=== PATIENT | female | born 1940 | race Two or more races ===

== ENCOUNTER 2024-03-23 11:52 | Emergency (ER) | payer OTHER ==
[~2024-03-23] VITALS: Ht 160 cm; Wt 56.8 kg
[2024-03-23 13:52] VITALS: BP 134/52; PULSE 67; RESP 18; TEMP 98.2; O2SAT 98
== END 2024-03-23 14:25 | disposition home or self-care (01) ==
LOC: ER 11:52
DX: S00.03XA Contusion of scalp, initial encounter (principal); I10 Essential (primary) hypertension; Z98.890 Other specified postprocedural states; W18.39XA Other fall on same level, initial encounter; Y93.89 Activity, other specified; Y92.89 Other specified places as the place of occurrence of the external cause; Y99.8 Other external cause status
CPT/HCPCS: 70450

== ENCOUNTER → 2024-04-06 | Outpatient (CLI) | payer OTHER ==
[2024-04-06 11:27] LABS: Alanine Aminotransferase 12 U/L (7-40); Albumin 4.3 g/dL (3.2-4.8); Alkaline Phosphatase 127 U/L (46-116); Anion Gap 3 (5-15); Aspartate Aminotransferase 12 U/L (13-40); Bilirubin, Total 0.6 mg/dL (0.2-1.0); Blood Urea Nitrogen 32 mg/dL (9-23); Calcium 9.2 mg/dL (8.7-10.4); Carbon Dioxide 34 mmol/L (20-31); Chloride 109 mmol/L (98-107); Glucose 102 mg/dL (74-106); Potassium 4.2 mmol/L (3.5-5.1); Sodium 146 mmol/L (136-145); Total Protein 7.5 g/dL (5.7-8.2)
== END | disposition home or self-care (01) ==
LOC: LAB 10:20
PROVIDERS: ATTEND Internal Medicine
DX: E87.6 Hypokalemia (principal); E83.51 Hypocalcemia; N18.31 Chronic kidney disease, stage 3a
CPT/HCPCS: 36415; 80053

== ENCOUNTER 2024-06-19 19:28 | Emergency (ER) | payer OTHER ==
[~2024-06-19] VITALS: Ht 160 cm; Wt 54.9 kg
--- NOTE | 2024-06-19 20:45 | ECG ---
[facility] Test Date: 2024-06-19 Test Time: 20:44:05 Pat Name: CAROL HINKLE Department: ER Room: Gender: F Visual Stylist: RASHAWN : 1940 Requested By: CHAD KILGORE Order Number: [id number] Reading MD: Measurements Intervals [place] Rate: 70 P: 136 MD: 294 QRS: -85 QRSD: 165 T: 106 QT: 482 QTc: 521 Interpretive Statements Atrial-sensed ventricular-paced rhythm No further analysis attempted due to paced rhythm Please click the below link to view image of tracing.
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
--- NOTE | 2024-06-19 21:15 | DVH ---
CHEST RADIOGRAPH Indication: htn Technique: Single frontal view of the chest was obtained Comparison: None FINDINGS: Lines and Tubes: Left-sided cardiac device with intact leads. Lungs: Clear Pleura: No effusion. No pneumothorax. Cardiomediastinal contours: Unremarkable Bones: Unremarkable IMPRESSION: Clear lungs.
[2024-06-19 21:17] LABS: Basophils # (auto) 0 10 ^3/uL (0-0.2); Eosinophils # (auto) 0.1 10 ^3/uL (0-0.8); Eosinophils % (auto) 1.6 % (0.0-7.0); Hemoglobin 12.2 g/dL (12.2-16.2); Lymphocytes # (auto) 1.4 10 ^3/uL (0.4-5.4); Monocytes # (auto) 0.6 10 ^3/uL (0-1.3); Neutrophils # (auto) 5.5 10 ^3/uL (1.6-8.6); White Blood Cell 7.6 10^3/uL (4.4-10.8)
[2024-06-19 21:18] LABS: Basophils % (auto) 0.5 % (0.0-2.0); Hematocrit 37.6 % (36.0-46.0); Lymphocytes % (auto) 17.9 % (10.0-50.0); Mean Corpuscular Hemoglobin 25.2 pg (28.0-32.0); Mean Corpuscular Hgb Conc. 32.5 g/dL (32.0-36.0); Mean Corpuscular Volume 77.5 fL (80.0-100.0); Monocytes % (auto) 7.6 % (0.0-12.0); Neutrophils % (auto) 72.4 % (37.0-80.0); Platelet Count (auto) 277 10^3/uL (140-450); Red Blood Cells 4.85 10^6/uL (4.0-5.20); Red Cell Distribution Width 16.2 % (11.8-14.3)
[2024-06-19 21:25] LABS: Potassium 3.8 mmol/L (3.5-5.1); Sodium 142 mmol/L (136-145)
[2024-06-19 21:26] LABS: Anion Gap 7 (5-15); Calcium 8.9 mg/dL (8.7-10.4); Carbon Dioxide 28 mmol/L (20-31)
[2024-06-19 21:31] LABS: BUN/Creatinine Ratio 23.6 (10.0-20.0)
[2024-06-19 21:40] LABS: Chloride 107 mmol/L (98-107); Glucose 108 mg/dL (74-106)
[2024-06-19 21:41] LABS: Blood Urea Nitrogen 30 mg/dL (9-23)
[2024-06-19 23:55] VITALS: BP 115/57; PULSE 70; RESP 16; TEMP 98.7; O2SAT 96
== END 2024-06-20 00:02 | disposition home or self-care (01) ==
LOC: ER 19:28
DX: I10 Essential (primary) hypertension (principal); Z98.890 Other specified postprocedural states
CPT/HCPCS: 36415; 71045; 80048; 84484; 85025; 93005

== ENCOUNTER 2024-06-25 14:07 | Emergency (ER) | payer OTHER ==
[~2024-06-25] VITALS: Ht 160 cm; Wt 55.9 kg
--- NOTE | 2024-06-25 14:40 | ED.PDOC ---
SOB-HPI HPI Comments 84 year old female brought in by daughter presents to the ED with a chief complaint of shortness of breath onset 3 days. Daughter states the patient has been experiencing shortness of breath for the past 3 days as well as congestion and cough. Patient was seen at urgent care, tested negative for COVID, tested positive for Flu A and was told to come to ED for lab work and CXR. Upon ED patient O2 sat was 100% on RA. PMHx of HTN, afib. Denies dizziness, blurry vision, headache, nausea, vomiting, diarrhea. No other symptoms or modifying factors present at this time. 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 Family History Family History: Reviewed,noncontributory to illness Social History Smoker: Non-Smoker Alcohol: Denies ETOH Use Drugs: Denies Drug Use Lives In: Home Constitutional: reports: weakness; denies: chills, diaphoresis, fatigue, fever, malaise, sweats, others EENTM: reports: nose congestion; denies: blurred vision, double vision, ear bleeding, ear discharge, ear drainage, ear pain, ear ringing, eye pain, eye redness, hearing loss, mouth pain, mouth swelling, nasal discharge, nose bleeding, nose pain, photophobia, tearing, throat pain, throat swelling, voice changes, others Respiratory: reports: cough, shortness of breath; denies: hemoptysis, orthopnea, SOB at rest, SOB with excertion, stridor, wheezing, others Cardiovascular: denies: chest pain, dizzy spells, diaphoresis, Dyspnea on exertion, edema, irregular heart beat, left arm pain, lightheadedness, palpitations, PND, syncope, others Gastrointestinal: denies: abdomen distended, abdominal pain, blood streaked bowels, constipated, diarrhea, dysphagia, difficulty swallowing, hematemesis, melena, nausea, poor appetite, poor fluid intake, rectal bleeding, rectal pain, vomiting, others Genitourinary: denies: abnormal vagina bleeding, burning, dyspareunia, dysuria, flank pain, frequency, hematuria, incontinence, pain, , vagina discharge, urgency, others Neurological: reports: weakness; denies: dizziness, fainting, headache, left sided numbness, left sided weakness, numbness, paresthesia, pre-existing deficit, right sided numbness, right sided weakness, seizure, speech problems, tingling, tremors, others Musculoskeletal: denies: back pain, gout, joint pain, joint swelling, muscle pain, muscle stiffness, neck pain, others Integumetry: denies: bruises, change in color, change in hair/nails, dryness, laceration, lesions, lumps, rash, wounds, others Allergic/Immunocompromised: denies: Difficulty Healing, Frequent Infections, Hives, Itching, others Hematologic/Lymphatic: denies: anemia, blood clots, easy bleeding, easy bruising, swollen glands, others Endocrine: denies: excessive hunger, excessive sweating, excessive thirst, excessive urination, flushing, intolerance to cold, intolerance to heat, unexplained weight gain, unexplained weight loss, others Psychiatric: denies: anxiety, bipolar disorder, depression, hopeless, panic disorder, schizophrenia, sleepless, suicidal, others All Other Systems: Reviewed and Negative Physical Exam General Appearance: No Apparent Distress, Normal HEENT: Normal ENT Inspection, Pharynx Normal, TMs Normal Neck: Full Range of Motion, Non-Tender, Normal, Normal Inspection Respiratory: Chest Non-Tender, Lungs Clear, No Accessory Muscle Use, No Respiratory Distress, Normal Breath Sounds Cardiovascular: No Edema, No JVD, No Murmur, No Gallop, Normal Peripheral Pulses, Regular Rate/Rhythm Breast Exam: Deferred Gastrointestinal: Non Tender, No Pulsatile Mass, Normal Bowel Sounds, Soft Genitalia: Deferred Pelvic: Deferred Rectal: Deferred Extremities: No calf tenderness, Normal capillary refill, Normal inspection, Normal range of motion, Non-tender, No pedal edema Musculoskeletal : Apperance: Normal Neurologic: Alert, 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 Was a procedure done?: No Differential Dx Differential Diagnosis: Anxiety, Asthma, Bronchitis, CHF, COPD, Dysrhythmia, Hypertension, Pneumonia X-Ray, Labs, Meds, VS Vital Signs Date Time Temp Pulse Resp B/P (MAP) Pulse Ox O2 Delivery O2 Flow Rate FiO2 06/25/24 14:30 97.6 69 20 137/42 (73) 100 Lab Test 06/25/24 14:41 Range/Units White Blood Count 6.6 4.4-10.8 10^3/uL Red Blood Count 4.88 4.0-5.20 10^6/uL Hemoglobin 12.2 12.2-16.2 g/dL Hematocrit 38.1 36.0-46.0 % Mean Corpuscular Volume 78.2 L 80.0-100.0 fL Mean Corpuscular Hemoglobin 25.1 L 28.0-32.0 pg Mean Corpuscular Hemoglobin Concent 32.0 32.0-36.0 g/dL Red Cell Distribution Width 16.8 H 11.8-14.3 % Platelet Count 223 140-450 10^3/uL Mean Platelet Volume 8.7 6.9-10.8 fL Neutrophils (%) (Auto) 74.6 37.0-80.0 % Lymphocytes (%) (Auto) 11.6 10.0-50.0 % Monocytes (%) (Auto) 12.8 H 0.0-12.0 % Eosinophils (%) (Auto) 0.7 0.0-7.0 % Basophils (%) (Auto) 0.3 0.0-2.0 % Neutrophils # (Auto) 4.9 1.6-8.6 10 ^3/uL Lymphocytes # (Auto) 0.8 0.4-5.4 10 ^3/uL Monocytes # (Auto) 0.8 0-1.3 10 ^3/uL Eosinophils # (Auto) 0 0-0.8 10 ^3/uL Basophils # (Auto) 0 0-0.2 10 ^3/uL Nucleated Red Blood Cells 0.0 % Sodium Level Pending Potassium Level Pending Chloride Level Pending Carbon Dioxide Level Pending Anion Gap Pending Blood Urea Nitrogen Pending Creatinine Pending Glomerular Filtration Rate Calc Pending BUN/Creatinine Ratio Pending Serum Glucose Pending Calcium Level Pending Total Bilirubin Pending Aspartate Amino Transferase (AST) Pending Alanine Aminotransferase (ALT) Pending Alkaline Phosphatase Pending Total Protein Pending Albumin Pending X-Ray, Labs, Meds, VS Comment This pleasant 84-year-old female was sent in from local urgent care for concern of pneumonia. The patient was diagnosed with influenza at the urging here. She had this fall as he suffered a history nasal congestion, sore throat cough and body aches. Overall, however, the patient states she feels better than she did yesterday. Her actually today shows a right lower lobe pneumonia. She was given Rocephin and azithromycin for community-acquired pneumonia. Considering her age and multiple comorbidities, the patient will be admitted for further workup and management of her pneumonia. Time of 1ST Reevaluation: 14:47 Reevaluation 1ST: Unchanged Patient Education/Counseling: Diagnosis, Treatment, Prognosis Family Education/Counseling: Diagnosis, Treatment, Prognosis Additional Information The following tests were ordered, and results were reviewed by me: CBC, CMP, XY CHEST 1 VIEW Additional Information was gathered from interviewing the following independent historians: daughter I reviewed and agreed with the following test results read by other providers: xy chest I discussed treatment and results with medical personnel and patient Departure 1 Departure Time of Disposition: 15:56 Impression: Primary Impression: Influenza A Additional Impression: Right lower lobe pneumonia Disposition: 09 ADMITTED INPATIENT Admit to: Tele Condition: Fair Critical Care Note Critical Care Time?: No Stability Stability form required: No Heart Score Heart Score: Heart Score Response (Comments) Value History N/A 0 EKG N/A 0 Age N/A 0 Risk Factors N/A 0 Troponin N/A 0 Total 0 I personally scribed for DOMINGO JOHNSON MD ([email or web address]) on 06/25/24 at 14:40. Electronically submitted by Dinorah De La Torre ([email or web address]). I personally scribed for DOMINGO JOHNSON MD ([email or web address]) on 06/25/24 at 14:41. Electronically submitted by Dinorah De La Torre ([email or web address]). DOMINGO JOHNSON MD Jun 25, 2024 14:40
--- NOTE | 2024-06-25 14:50 | DVH ---
CHEST RADIOGRAPH Indication: cough Technique: Single frontal view of the chest was obtained COMPARISON: XY CHEST PORTABLE on DOS: 06/19/24 FINDINGS: Lines and Tubes: Left chest wall pacemaker Lungs: Right lower lobe airspace disease. Pleura: No effusion. No pneumothorax. Cardiomediastinal contours: Cardiac valve replacement. Bones: Unremarkable IMPRESSION: Right lower lobe airspace disease.
[2024-06-25 15:34] LABS: Basophils # (auto) 0 10 ^3/uL (0-0.2); Basophils % (auto) 0.3 % (0.0-2.0); Eosinophils # (auto) 0 10 ^3/uL (0-0.8); Eosinophils % (auto) 0.7 % (0.0-7.0); Hematocrit 38.1 % (36.0-46.0); Hemoglobin 12.2 g/dL (12.2-16.2); Lymphocytes # (auto) 0.8 10 ^3/uL (0.4-5.4); Lymphocytes % (auto) 11.6 % (10.0-50.0); Mean Corpuscular Hemoglobin 25.1 pg (28.0-32.0); Mean Corpuscular Volume 78.2 fL (80.0-100.0); Monocytes # (auto) 0.8 10 ^3/uL (0-1.3); Monocytes % (auto) 12.8 % (0.0-12.0); Neutrophils # (auto) 4.9 10 ^3/uL (1.6-8.6); Neutrophils % (auto) 74.6 % (37.0-80.0); Platelet Count (auto) 223 10^3/uL (140-450); Red Blood Cells 4.88 10^6/uL (4.0-5.20); Red Cell Distribution Width 16.8 % (11.8-14.3); White Blood Cell 6.6 10^3/uL (4.4-10.8)
[2024-06-25 15:49] LABS: Alanine Aminotransferase 19 U/L (7-40); Albumin 4.6 g/dL (3.2-4.8); Alkaline Phosphatase 96 U/L (46-116); Anion Gap 10 (5-15); Aspartate Aminotransferase 31 U/L (13-40); BUN/Creatinine Ratio 18.4 (10.0-20.0); Calcium 8.7 mg/dL (8.7-10.4); Carbon Dioxide 28 mmol/L (20-31); Chloride 101 mmol/L (98-107); Glucose 98 mg/dL (74-106); Potassium 3.6 mmol/L (3.5-5.1); Sodium 139 mmol/L (136-145)
[2024-06-25 15:50] LABS: Bilirubin, Total 0.4 mg/dL (0.2-1.0); Total Protein 7.6 g/dL (5.7-8.2)
[2024-06-25 15:53] LABS: Blood Urea Nitrogen 38 mg/dL (9-23)
[2024-06-25] MEDS ORDERED: cefTRIAXone 1GM/50ML D5W 50 ML IV ONE (16:00)
[2024-06-25] MEDS ORDERED: AZITHROMYCIN 500MG/ 250ML 250 ML IV ONE (16:00)
[2024-06-25 16:31] VITALS: BP 128/48; PULSE 70; RESP 16; TEMP 98.8; O2SAT 100
--- NOTE | 2024-06-26 06:25 | ECG ---
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
== END 2024-06-25 17:25 | disposition left against medical advice (07) ==
LOC: ER 14:07
DX: J10.00 Influenza due to other identified influenza virus with unspecified type of pneumonia (principal); I10 Essential (primary) hypertension; Z98.890 Other specified postprocedural states
CPT/HCPCS: 36415; 71045; 80053; 85025; 93005; 99285; J0696

== ENCOUNTER 2024-06-29 14:09 | Emergency (ER) | payer OTHER ==
[~2024-06-29] VITALS: Ht 160 cm; Wt 55.7 kg
--- NOTE | 2024-06-29 14:31 | ED.PDOC ---
History of Present Illness HPI Comments 84-year-old female who comes in with chief complaint of abnormal lab work. According to the family, the patient was seen on Friday at [facility]. At that time, the patient was admitted with influenza a and possible right lower lobe pneumonia. It seems that the patient did not want to wait and so left the department's. The patient's primary care doctor called him today and told him to come to the emergency department's because they had some abnormal labs. They were told that if they did not come in the patient could . Upon arrival, the patient is complaining of some weakness and dizziness with nausea. The patient was also having a mild headache. The patient denies any chest pain or shortness for breath. Chief Complaint: Abnormal LAB's Time Seen by MD: 14:14 Primary Care Provider: FAVIO Posada Notes: Nurses Notes, Medications, Allergies (No allergies to medications) Allergies: Coded Allergies: NO KNOWN ALLERGIES (Unverified , 03/23/24) Information Source: Patient, Relative (GrandChild) Mode of Arrival: Ambulatory Severity: Mild Timing: Days Duration: Since onset Prehospital treatment: None Associated signs and symptoms Mild dizziness with headache and nausea Past Medical History PAST MEDICAL HISTORY: AFIB, CVA, High Lipids, HTN Surgical History: , Pacemaker, PTCA Surgical History (Other): Cardiac valve replacement (aortic) IMAGING CENTER MANAGER History: Denies all IMAGING CENTER MANAGER Hx Family History Family History: Reviewed,noncontributory to illness Social History Smoker: Non-Smoker Alcohol: Rarely Drugs: Denies Drug Use Lives In: Home Constitutional: reports: weakness; denies: chills, diaphoresis, fatigue, fever, malaise, sweats, others EENTM: denies: blurred vision, double vision, ear bleeding, ear discharge, ear drainage, ear pain, ear ringing, eye pain, eye redness, hearing loss, mouth pain, mouth swelling, nasal discharge, nose bleeding, nose congestion, nose pain, photophobia, tearing, throat pain, throat swelling, voice changes, others Respiratory: denies: cough, hemoptysis, orthopnea, SOB at rest, shortness of breath, SOB with excertion, stridor, wheezing, others Cardiovascular: denies: chest pain, dizzy spells, diaphoresis, Dyspnea on exertion, edema, irregular heart beat, left arm pain, lightheadedness, palpitations, PND, syncope, others Gastrointestinal: reports: nausea; denies: abdomen distended, abdominal pain, blood streaked bowels, constipated, diarrhea, dysphagia, difficulty swallowing, hematemesis, melena, poor appetite, poor fluid intake, rectal bleeding, rectal pain, vomiting, others Genitourinary: denies: abnormal vagina bleeding, burning, dyspareunia, dysuria, flank pain, frequency, hematuria, incontinence, pain, , vagina discharge, urgency, others Neurological: reports: dizziness, headache; denies: fainting, left sided numbness, left sided weakness, numbness, paresthesia, pre-existing deficit, right sided numbness, right sided weakness, seizure, speech problems, tingling, tremors, weakness, others Musculoskeletal: denies: back pain, gout, joint pain, joint swelling, muscle pain, muscle stiffness, neck pain, others Integumetry: denies: bruises, change in color, change in hair/nails, dryness, laceration, lesions, lumps, rash, wounds, others Allergic/Immunocompromised: denies: Difficulty Healing, Frequent Infections, Hives, Itching, others Hematologic/Lymphatic: denies: anemia, blood clots, easy bleeding, easy bruising, swollen glands, others Endocrine: denies: excessive hunger, excessive sweating, excessive thirst, excessive urination, flushing, intolerance to cold, intolerance to heat, unexplained weight gain, unexplained weight loss, others Psychiatric: denies: anxiety, bipolar disorder, depression, hopeless, panic disorder, schizophrenia, sleepless, suicidal, others Physical Exam General Appearance: No Apparent Distress HEENT: Normal ENT Inspection, Pharynx Normal, TMs Normal Neck: Full Range of Motion, Non-Tender, Normal, Normal Inspection Respiratory: Chest Non-Tender, Lungs Clear, No Accessory Muscle Use, No Respiratory Distress, Normal Breath Sounds Cardiovascular: No Edema, No JVD, No Murmur, No Gallop, Normal Peripheral Pulses, Regular Rate/Rhythm Breast Exam: Deferred Gastrointestinal: No Organomegaly, Non Tender, No Pulsatile Mass, Normal Bowel Sounds, Soft Genitalia: Deferred Pelvic: Deferred Rectal: Deferred Extremities: No calf tenderness, Normal capillary refill, Normal inspection, Normal range of motion, Non-tender, No pedal edema Musculoskeletal : Apperance: Normal Neurologic: Alert, data services developer II-XII nml as Tested, Motor Weakness, Normal Affect, Normal Mood, No Sensory Deficits Cerebellar Function: Normal Reflexes: Normal Skin: Dry, Pallor, Warm Lymphatic: No Adenopathy Was a procedure done? Was a procedure done?: No Differential Dx Considerations may include: Generalized weakness, electrolyte imbalance, anemia, UTI X-Ray, Labs, Meds, VS Vital Signs Date Time Temp Pulse Resp B/P (MAP) Pulse Ox O2 Delivery O2 Flow Rate FiO2 06/29/24 14:35 68 06/29/24 14:26 18 97 Room Air* 0 21 06/29/24 14:15 98.2 78 18 164/62 (96) 97 Lab Test 06/29/24 14:30 Range/Units White Blood Count 5.8 4.4-10.8 10^3/uL Red Blood Count 4.63 4.0-5.20 10^6/uL Hemoglobin 11.8 L 12.2-16.2 g/dL Hematocrit 35.7 L 36.0-46.0 % Mean Corpuscular Volume 77.1 L 80.0-100.0 fL Mean Corpuscular Hemoglobin 25.4 L 28.0-32.0 pg Mean Corpuscular Hemoglobin Concent 32.9 32.0-36.0 g/dL Red Cell Distribution Width 16.2 H 11.8-14.3 % Platelet Count 288 140-450 10^3/uL Mean Platelet Volume 8.4 6.9-10.8 fL Neutrophils (%) (Auto) 65.0 37.0-80.0 % Lymphocytes (%) (Auto) 21.0 10.0-50.0 % Monocytes (%) (Auto) 11.6 0.0-12.0 % Eosinophils (%) (Auto) 2.1 0.0-7.0 % Basophils (%) (Auto) 0.3 0.0-2.0 % Neutrophils # (Auto) 3.8 1.6-8.6 10 ^3/uL Lymphocytes # (Auto) 1.2 0.4-5.4 10 ^3/uL Monocytes # (Auto) 0.7 0-1.3 10 ^3/uL Eosinophils # (Auto) 0.1 0-0.8 10 ^3/uL Basophils # (Auto) 0 0-0.2 10 ^3/uL Nucleated Red Blood Cells 0.0 % Sodium Level 140 136-145 mmol/L Potassium Level 4.1 3.5-5.1 mmol/L Chloride Level 103 98-107 mmol/L Carbon Dioxide Level 29 20-31 mmol/L Anion Gap 8 5-15 Blood Urea Nitrogen 26 H 9-23 mg/dL Creatinine 1.25 #H 0.550-1.02 mg/dL Glomerular Filtration Rate Calc 43 >90 mL/min BUN/Creatinine Ratio 20.8 H 10.0-20.0 Serum Glucose 99 74-106 mg/dL Calcium Level 8.6 L 8.7-10.4 mg/dL The patient's CBC and chemistry panel are within normal limits except for BUN of 26 and a creatinine of 1.25 At this time, the patient is being discharged We did speak with the patient's primary care doctor and the patient will follow up with them The patient understands and agrees with the management We also spoke with the family. Time of 1ST Reevaluation: 16:45 Reevaluation 1ST: Unchanged Patient Education/Counseling: Diagnosis, Treatment, Prognosis, Need For Follow Up Family Education/Counseling: Diagnosis, Treatment, Prognosis, Need For Follow Up Departure 1 Departure Time of Disposition: 16:45 Impression: Primary Impression: Renal insufficiency Disposition: 01 HOME / SELF CARE / HOMELESS Condition: Fair Discharged With: Self, Relative Critical Care Note Critical Care Time?: No Stability Stability form required: No Heart Score Heart Score: Heart Score Response (Comments) Value History N/A 0 EKG N/A 0 Age N/A 0 Risk Factors N/A 0 Troponin N/A 0 Total 0 NEHEMIAS COFFEY MD Jun 29, 2024 14:31
[2024-06-29 15:07] LABS: Basophils # (auto) 0 10 ^3/uL (0-0.2); Eosinophils # (auto) 0.1 10 ^3/uL (0-0.8); Hemoglobin 11.8 g/dL (12.2-16.2); Lymphocytes # (auto) 1.2 10 ^3/uL (0.4-5.4); Monocytes # (auto) 0.7 10 ^3/uL (0-1.3); White Blood Cell 5.8 10^3/uL (4.4-10.8)
[2024-06-29 15:08] LABS: Basophils % (auto) 0.3 % (0.0-2.0); Eosinophils % (auto) 2.1 % (0.0-7.0); Hematocrit 35.7 % (36.0-46.0); Mean Corpuscular Hemoglobin 25.4 pg (28.0-32.0); Mean Corpuscular Hgb Conc. 32.9 g/dL (32.0-36.0); Mean Corpuscular Volume 77.1 fL (80.0-100.0); Monocytes % (auto) 11.6 % (0.0-12.0); Neutrophils # (auto) 3.8 10 ^3/uL (1.6-8.6); Platelet Count (auto) 288 10^3/uL (140-450); Red Blood Cells 4.63 10^6/uL (4.0-5.20); Red Cell Distribution Width 16.2 % (11.8-14.3)
[2024-06-29 15:15] LABS: Chloride 103 mmol/L (98-107); Potassium 4.1 mmol/L (3.5-5.1); Sodium 140 mmol/L (136-145)
[2024-06-29 15:16] LABS: Anion Gap 8 (5-15); Carbon Dioxide 29 mmol/L (20-31)
[2024-06-29 15:21] LABS: BUN/Creatinine Ratio 20.8 (10.0-20.0); Glucose 99 mg/dL (74-106)
[2024-06-29 15:39] LABS: Blood Urea Nitrogen 26 mg/dL (9-23); Calcium 8.6 mg/dL (8.7-10.4)
[2024-06-29 16:56] VITALS: BP 143/42; TEMP 97.9
[2024-06-29 16:59] VITALS: PULSE 79; RESP 14; O2SAT 98
--- NOTE | 2024-07-01 07:14 | ECG ---
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
== END 2024-06-29 17:05 | disposition home or self-care (01) ==
LOC: ER 14:10
DX: N28.9 Disorder of kidney and ureter, unspecified (principal); I10 Essential (primary) hypertension; I48.91 Unspecified atrial fibrillation; Z95.0 Presence of cardiac pacemaker; Z95.2 Presence of prosthetic heart valve; Z98.890 Other specified postprocedural states
CPT/HCPCS: 36415; 80048; 85025; 93005

== ENCOUNTER → 2024-07-12 | Outpatient (CLI) | payer OTHER ==
[2024-07-12] MEDS: REGADENOSON 0.4 MG/5 ML SYRG IV ONE ×2 (09:37→09:46)
--- NOTE | 2024-07-12 11:08 | DVHSR ---
APPROVED REPORT Exam: Nuclear Stress Test BMI: 0 Stress Test Details HR Max Heart Rate (APMHR): 138.004514 bpm Target HR (85% APMHR): 117.257004 bpm BP ECG Stress ECG Conclusion lvef 52% no ischemia noted remote inferior infarct old , NM EXAM: Myocardial Perfusion REST/STRESS Imaging Protocol: Rest Tc-99m/Stress Tc-99m 1 day Resting Data Rest SPECT myocardial perfusion imaging was performed in supine position 60 minutes following the int ravenous injection of mCi of Tc-99m Sestamibi. Time of rest injection: 0758 Time of rest imagin Administration Route: IV Administration Site: Right Wrist Pharmacologic Stress Pharmacologic stress test was performed by injecting Regadenoson 0.4 mg IV push followed by the intra venous injection of 31.7 mCi of Tc-99m Sestamibi. Time of stress injection: 0938 Time of stress imagin Administration Route: IV Administration Site: Right Wrist Gated Stress SPECT was performed 60 minutes after stress injection. The images were gated to evaluate regional wall motion and calculate left ventricular ejection fracti on. Stress only was performed in the Supine position. Nuclear Conclusion Nuclear Findings: negative for ischemia lvef 52% no ischemia noted remote inferior infarct old ,
== END | disposition home or self-care (01) ==
LOC: XYW 07:10
PROVIDERS: ATTEND Internal Medicine
DX: Z01.810 Encounter for preprocedural cardiovascular examination (principal); I48.0 Paroxysmal atrial fibrillation
CPT/HCPCS: 78452; 93017; A9500; J2785

== ENCOUNTER → 2024-07-13 | Outpatient (CLI) | payer OTHER ==
[2024-07-13 16:53] LABS: Chloride 105 mmol/L (98-107); Potassium 4.7 mmol/L (3.5-5.1); Sodium 142 mmol/L (136-145)
[2024-07-13 16:54] LABS: Anion Gap 8 (5-15); Calcium 9.3 mg/dL (8.7-10.4); Carbon Dioxide 29 mmol/L (20-31)
[2024-07-13 16:59] LABS: BUN/Creatinine Ratio 23.9 (10.0-20.0); Glucose 100 mg/dL (74-106)
[2024-07-13 17:02] LABS: Blood Urea Nitrogen 28 mg/dL (9-23)
== END | disposition home or self-care (01) ==
LOC: LAB 14:46
PROVIDERS: ATTEND Internal Medicine
DX: Z11.1 Encounter for screening for respiratory tuberculosis (principal); I13.0 Hypertensive heart and chronic kidney disease with heart failure and stage 1 through stage 4 chronic kidney disease, or unspecified chronic kidney disease; I50.9 Heart failure, unspecified; N18.9 Chronic kidney disease, unspecified
CPT/HCPCS: 36415; 80048

== ENCOUNTER 2024-11-04 15:19 | Outpatient (CLI) | payer OTHER | END 2024-11-04 17:00 | disposition home or self-care (01) | LOC: LAB 15:19 | PROVIDERS: ATTEND Registered Nurse | DX: N39.0 Urinary tract infection, site not specified (principal); R82.90 Unspecified abnormal findings in urine | CPT/HCPCS: 87086 ==

== ENCOUNTER 2025-03-31 17:17 | Inpatient (IN) | payer OTHER ==
[~2025-03-31] VITALS: Ht 160 cm; Wt 53.6 kg
[2025-03-31] MEDS ORDERED: SODIUM CHLORIDE 0.9% 500 ML IVB ONE (18:15)
[2025-03-31] MEDS ORDERED: ONDANSETRON HCL 4 MG/2 ML VIAL IV ONE (18:15)
[2025-03-31] MEDS ORDERED: MORPHINE SULFATE 4 MG/ML SYR/VIAL IV ONE (18:15)
--- NOTE | 2025-03-31 18:20 | ED.PDOC ---
GI ASSESSMENT HPI Comments 84 y/o F, accompanied by daughter, with PMHx of HTN, HLD, and CVA presents to the ED for CC of abdominal pain. Per patient's daughter, patient has been c/o upper abdominal pain sudden onset, 1200 today (03/31/25). Patient denies nausea, vomiting, constipation, or diarrhea. No other symptoms or modifying factors are present at this time. Chief Complaint: Abdominal Pain Time Seen by MD: 18:00 Primary Care Provider: RADHA ULRICH Reviewed Notes: Nurses Notes, Medications, Allergies Allergies: Coded Allergies: NO KNOWN ALLERGIES (Unverified , 03/23/24) Information Source: Patient Mode of Arrival: Wheelchair Timing: Hours Duration: Since onset Prehospital treatment: None Vomitus: None Stool: Normal Severity: Moderate Recent: None Recent Hx of: None Pain Location: Epigastric, RUQ, LUQ Modifying Factors: Nothing Associated sign and symptoms: Abdominal Pain Past Medical History PAST MEDICAL HISTORY: AFIB, CVA, High Lipids, HTN Surgical History: , Pacemaker, PTCA 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: 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 all BINDING FOLDER MACHINE Hx Family History Family History: Reviewed,noncontributory to illness Social History Smoker: Non-Smoker Alcohol: Rarely Drugs: Denies Drug Use Lives In: Home Constitutional: denies: chills, diaphoresis, fatigue, fever, malaise, sweats, w eakness, others EENTM: denies: blurred vision, double vision, ear bleeding, ear discharge, ear drainage, ear pain, ear ringing, eye pain, eye redness, hearing loss, mouth pain, mouth swelling, nasal discharge, nose bleeding, nose congestion, nose pain, photophobia, tearing, throat pain, throat swelling, voice changes, others Respiratory: denies: cough, hemoptysis, orthopnea, SOB at rest, shortness of breath, SOB with excertion, stridor, wheezing, others Cardiovascular: denies: chest pain, dizzy spells, diaphoresis, Dyspnea on exertion, edema, irregular heart beat, left arm pain, lightheadedness, palpitations, PND, syncope, others Gastrointestinal: denies: abdomen distended, abdominal pain, blood streaked bowels, constipated, diarrhea, dysphagia, difficulty swallowing, hematemesis, melena, nausea, poor appetite, poor fluid intake, rectal bleeding, rectal pain, vomiting, others Genitourinary: denies: abnormal vagina bleeding, burning, dyspareunia, dysuria, flank pain, frequency, hematuria, incontinence, pain, , vagina di scharge, urgency, others Neurological: denies: dizziness, fainting, headache, left sided numbness, left sided weakness, numbness, paresthesia, pre-existing deficit, right sided numbness, right sided weakness, seizure, speech problems, tingling, tremors, weakness, others Musculoskeletal: denies: back pain, gout, joint pain, joint swelling, muscle pain, muscle stiffness, neck pain, others Integumetry: denies: bruises, change in color, change in hair/nails, dryness, laceration, lesions, lumps, rash, wounds, others Allergic/Immunocompromised: denies: Difficulty Healing, Frequent Infections, Hives, Itching, others Hematologic/Lymphatic: denies: anemia, blood clots, easy bleeding, easy bruising, swollen glands, others Endocrine: denies: excessive hunger, excessive sweating, excessive thirst, excessive urination, flushing, intolerance to cold, intolerance to heat, unexplained weight gain, unexplained weight loss, others Psychiatric: denies: anxiety, bipolar disorder, depression, hopeless, panic disorder, schizophrenia, sleepless, suicidal, others All Other Systems: Reviewed and Negative Physical Exam General Appearance: Moderate Distress HEENT: Normal ENT Inspection, Pharynx Normal, TMs Normal Neck: Full Range of Motion, Non-Tender, Normal, Normal Inspection Respiratory: Chest Non-Tender, Lungs Clear, No Accessory Muscle Use, No Respiratory Distress, Normal Breath Sounds Cardiovascular: No Edema, No JVD, No Murmur, No Gallop, Normal Peripheral Pulses, Regular Rate/Rhythm Breast Exam: Deferred Gastrointestinal: Epigastric, No Organomegaly, No Pulsatile Mass, Normal Bowel Sounds, Soft Genitalia: Deferred Pelvic: Deferred Rectal: Deferred Extremities: No calf tenderness, Normal capillary refill, Normal inspection, Normal range of motion, Non-tender, No pedal edema Musculoskeletal : Apperance: Normal Neurologic: Alert, cupola tapper II-XII nml as Tested, No Motor Deficits, Normal Affect, Normal Mood, No Sensory Deficits Cerebellar Function: Normal Reflexes: Normal Skin: Dry, Normal Color, Warm Lymphatic: No Adenopathy EKG EKG : Pulse Rate (adult): 71 [place]: Normal Cardiac Rhythm: Paced Block: None Hypertrophy: None ST: Normal Was a procedure done? Was a procedure done?: No GI differential Dx Differential Diagnosis: Cholangitis, Cholecystitis, Constipation, Gastritis/PUD, Gastroenteritis, Bacterial, Viral X-Ray, Labs, Meds, VS Vital Signs Date Time Temp Pulse Resp B/P (MAP) Pulse Ox O2 Delivery O2 Flow Rate FiO2 03/31/25 18:20 71 03/31/25 17:33 71 03/31/25 17:19 98.4 74 16 156/72 98 98.4 Lab Test 03/31/25 18:40 Range/Units White Blood Count 8.2 4.4-10.8 10^3/uL Red Blood Count 4.40 4.0-5.20 10^6/uL Hemoglobin 9.9 L 12.2-16.2 g/dL Hematocrit 30.4 L 36.0-46.0 % Mean Corpuscular Volume 69.2 L 80.0-100.0 fL Mean Corpuscular Hemoglobin 22.5 L 28.0-32.0 pg Mean Corpuscular Hemoglobin Concent 32.5 32.0-36.0 g/dL Red Cell Distribution Width 18.0 H 11.8-14.3 % Platelet Count 329 140-450 10^3/uL Mean Platelet Volume 7.9 6.9-10.8 fL Neutrophils (%) (Auto) 76.5 37.0-80.0 % Lymphocytes (%) (Auto) 12.8 10.0-50.0 % Monocytes (%) (Auto) 8.3 0.0-12.0 % Eosinophils (%) (Auto) 1.9 0.0-7.0 % Basophils (%) (Auto) 0.5 0.0-2.0 % Neutrophils # (Auto) 6.3 1.6-8.6 10 ^3/uL Lymphocytes # (Auto) 1.0 0.4-5.4 10 ^3/uL Monocytes # (Auto) 0.7 0-1.3 10 ^3/uL Eosinophils # (Auto) 0.2 0-0.8 10 ^3/uL Basophils # (Auto) 0 0-0.2 10 ^3/uL Nucleated Red Blood Cells 0.0 % Sodium Level 140 136-145 mmol/L Potassium Level 4.7 3.5-5.1 mmol/L Chloride Level 103 98-107 mmol/L Carbon Dioxide Level 28 20-31 mmol/L Anion Gap 9 5-15 Blood Urea Nitrogen 22 9-23 mg/dL Creatinine 1.31 H 0.550-1.02 mg/dL Glomerular Filtration Rate Calc 41 >90 mL/min BUN/Creatinine Ratio 16.8 10.0-20.0 Serum Glucose 95 74-106 mg/dL Calcium Level 8.8 8.7-10.4 mg/dL Total Bilirubin 0.6 0.2-1.0 mg/dL Aspartate Amino Transferase (AST) 20 13-40 U/L Alanine Aminotransferase (ALT) 14 7-40 U/L Alkaline Phosphatase 116 46-116 U/L Total Protein 7.5 5.7-8.2 g/dL Albumin 4.2 3.2-4.8 g/dL Lipase 51 12-53 U/L GALLBLADDER US: IMPRESSION: 1. No acute sonographic abnormality of the abdomen allowing for limitation from overlying bowel gas and patient positioning. The patient's CBC shows anemia with a hemoglobin of 9.9 hematocrit of 30.4 The chemistry panel shows a creatinine of 1.31 The rest of the chemistry panel is within normal limits This patient is being admitted to the hospitalist A CAT scan of the abdomen and pelvis has been ordered The patient is still having persistent pain We did order morphine and Zofran for the pain in the nausea Images Reviewed?: Images reviewed and evaluated by me Time of 1ST Reevaluation: 18:30 Reevaluation 1ST: Unchanged Patient Education/Counseling: Diagnosis, Treatment Family Education/Counseling: Diagnosis, Treatment SEPSIS Sepsis Screen Date sepsis recognized/suspect: Mar 31, 2025 Time Sepsis recognized/suspect: 1718 Recent Procedure: No Respiratory Rate >20: No Heart Rate >90: No Temp<36 C (96.8 F) or >38.3 C: No SBP <90 or MAP <65 mmHG: No New Acute Mental Status Change: No Is the patient on CPAP, BIPAP,: No Physician Orders Urinalysis (03/31/25 18:14) Heplock Iv (03/31/25 18:14) Wind Turbine Electrical Engineer (03/31/25 18:14) Blood Pressure (03/31/25 18:14) Pulse Oximetry (03/31/25 18:14) Gallbladder (03/31/25 18:14) Electrocardigram (03/31/25 18:47) Ct Ab Pel Wo Con-No Oral Or Iv (03/31/25 20:04) Losartan Tablet (Cozaar Tablet) (04/01/25 10:00) Metoprolol Tartrate Tablet (Lopressor Ta (03/31/25 22:00) Clonidine Hcl Tablet (Catapres Tablet) (03/31/25 20:30) Pantoprazole (Protonix) (04/01/25 10:00) Allergies (03/31/25 20:28) Code Status (03/31/25 20:28) Sodium Chloride Lock (Saline Lock Ns) (03/31/25 22:00) Oxygen Per Hour (03/31/25:28) Hydrocodone-Acet 5/325mg Tab (Artesian 32 (03/31/25 20:30) Ondansetron Hcl (Zofran) (03/31/25 20:30) Docusate Sodium Capsule (Colace Capsule) (03/31/25 20:30) Fall Risk Precautions In Place QSHIFT (03/31/25 20:28) Complete Blood Count (04/01/25 04:00) Comprehensive Metabolic Panel (04/01/25 04:00) Condition: Serious (03/31/25 20:28) Acetaminophen Tablet (Tylenol Tablet) (03/31/25 20:30) Clear Liq Diet (04/01/25 Breakfast) Maintain Bed Rest (03/31/25 20:28) Sequential Compression Device (03/31/25 ) Rivaroxaban Tablet (Xarelto Tablet) (04/01/25 18:00) Vital Signs Date Time Temp Pulse Resp B/P (MAP) Pulse Ox O2 Delivery O2 Flow Rate FiO2 03/31/25 18:20 71 03/31/25 17:33 71 03/31/25 17:19 98.4 74 16 156/72 98 98.4 Laboratory Tests Test 03/31/25 18:40 White Blood Count 8.2 10^3/uL (4.4-10.8) Departure 1 Departure Time of Disposition: 21:16 Impression: Primary Impression: Intractable abdominal pain Disposition: ADMITTED INPATIENT Admit to: Med Surg Condition: Fair Critical Care Note Critical Care Time?: No Stability Stability form required: Yes Unstable for transfer: ED Physician Assesment (Clinical assesment) Heart Score Heart Score: Heart Score Response (Comments) Value History N/A 0 EKG N/A 0 Age N/A 0 Risk Factors N/A 0 Troponin N/A 0 Total 0 I personally scribed for NEHEMIAS COFFEY MD ([email or web address]) on 03/31/25 at 18:20. Electronically submitted by Mary Graham [email or web address]). I personally scribed for NEHEMIAS COFFEY MD ([email or web address]) on 03/31/25 at 20:59. Electronically submitted by Mary Grhaam [email or web address]). NEHEMIAS COFFEY MD Mar 31, 2025 18:20
[2025-03-31 19:00] LABS: Nucleated Red Blood Cells % 0.0 %
[2025-03-31 19:01] LABS: Hematocrit 30.4 % (36.0-46.0); Hemoglobin 9.9 g/dL (12.2-16.2); Mean Corpuscular Hemoglobin 22.5 pg (28.0-32.0); Mean Corpuscular Volume 69.2 fL (80.0-100.0)
[2025-03-31 19:15] LABS: Alanine Aminotransferase 14 U/L (7-40); Albumin 4.2 g/dL (3.2-4.8); Alkaline Phosphatase 116 U/L (46-116); Anion Gap 9 (5-15); BUN/Creatinine Ratio 16.8 (10.0-20.0); Blood Urea Nitrogen 22 mg/dL (9-23); Calcium 8.8 mg/dL (8.7-10.4); Carbon Dioxide 28 mmol/L (20-31); Chloride 103 mmol/L (98-107); Glucose 95 mg/dL (74-106); Lipase 51 U/L (12-53); Potassium 4.7 mmol/L (3.5-5.1); Sodium 140 mmol/L (136-145); Total Protein 7.5 g/dL (5.7-8.2)
[2025-03-31 19:16] LABS: Bilirubin, Total 0.6 mg/dL (0.2-1.0)
--- NOTE | 2025-03-31 19:58 | DVH ---
EXAM: US GALLBLADDER HISTORY: pain COMPARISON: XY CHEST XRAY 1 VIEW on DOS: 06/25/24 TECHNIQUE: Multiple longitudinal and transverse sonographic images of the abdomen were obtained. Doppler was applied as indicated. FINDINGS: [PANCREAS]: The visualized portions of the pancreas are unremarkable. [AORTA]: Normal [LIVER]: 12.8 cm. normal echogenicity and echotexture. There is no focal hepatic mass lesion detected. [GALLBLADDER]: Gallbladder wall measures 0.2 cm. There is no gallbladder sludge or shadowing gallstone. There is no sonographic Hemphill sign. [BILIARY TREE]: Not well-visualized [ASCITES]: No free fluid is demonstrated. [VESSELS]: The main portal vein is patent on color Doppler evaluation. The inferior vena cava is patent on color Doppler evaluation. [RIGHT KIDNEY]: 9 cm. normal cortical echogenicity and normal contour. No hydronephrosis. IMPRESSION: 1. No acute sonographic abnormality of the abdomen allowing for limitation from overlying bowel gas and patient positioning.
[2025-03-31] MEDS ORDERED: ACETAMINOPHEN 325 MG TAB PO PRN (20:30)
[2025-03-31] MEDS ORDERED: ONDANSETRON HCL 4 MG/2 ML VIAL IV PRN (20:30)
[2025-03-31] MEDS ORDERED: DOCUSATE SOD 100 MG CAP PO PRN (20:30)
--- NOTE | 2025-03-31 21:25 | DVH ---
Exam: CT CT AB PEL WO CON-NO ORAL OR IV History: pain Comparison Study: XY CHEST XRAY 1 VIEW on DOS: 06/25/24, XY CHEST PORTABLE on DOS: 06/19/24, CT HEAD WITHOUT CONTRAST on DOS: 03/23/24 Technique: Multidetector spiral CT of the abdomen was performed from lung bases to pubic symphysis. Imaging was performed without IV contrast. Axial, coronal and sagittal multiplanar reformats were obtained from the axial data set by the technologist. Radiation Dose : 1. Abdomen/Pelvis: CTDIvol 12.23 mGy, DLP 707.71 mGy*cm. Findings: Evaluation of solid organs is limited due to lack of intravenous contrast use. Lung Bases: No acute or significant lung base finding. Normal heart size. No pleural or pericardial effusion. Small pericardial effusion. Liver: The liver is normal in size. No focal lesions. Gallbladder and Biliary Tree: Unremarkable Spleen: Unremarkable Pancreas: The pancreas is grossly normal in appearance. Adrenal Glands: Unremarkable Kidneys: Left kidney is severely atrophic. Bladder: Grossly unremarkable for degree of distention. Bowel: The stomach is grossly normal in appearance. Small bowel and colon are normal in caliber and distribution. The appendix is not visualized; however, no secondary findings of acute appendicitis identified. Ascites: Small volume ascites. Lymphadenopathy: No mesenteric, retroperitoneal or periportal lymphadenopathy. Abdominal Wall and Mesentery: Unremarkable. Vasculature: The visualized abdominal aorta is normal in size and caliber. Evaluation of abdominal and pelvic vessels is limited due to lack of intravenous contrast. Pelvic Organs: Unremarkable Musculoskeletal: No aggressive focal bony lesions, acute fractures or dislocation. Right breast implant. IMPRESSION: No acute abdominal or pelvic findings. Radiation optimization: All CT scans at this facility use at least one of these dose optimization techniques: automated exposure control mA and/or kV adjustment per patient size (includes targeted exams where dose is matched to clinical indication) or iterative reconstruction.
--- NOTE | 2025-03-31 22:29 | DVHHP2 ---
History of Present Illness Reason for Visit: Intractable abdominal pain History of Present Illness The patient is a 84-year-old female Jehovah Witness with past medical history of CVA, AFib, hypertension, and hyperlipidemia who presented to [facility] ED with complaint of abdominal pain. Patient reports she has been experiencing upper abdominal pain rating 7/10 numeric scale, nonradiating, getting worse that prompted this visit. Patient was seen and evaluated in the ED, laboratory data shows WBC 8.2, hemoglobin 9.9, hematocrit 30.4, platelets 329, sodium 140, potassium 4.7, BUN 22, creatinine 1.31, GFR 41, glucose 95, calcium 8.8, lipase 51, blood pressure 156/72, heart rate 72, temperature 98.4 F, O2 saturation 98% on room air. Abdomen/pelvis CT showed no acute abdominal or pelvic findings. Please see medication orders section in the computer. On my assessment, patient denied chest pain, no dizziness, headache, diaphoresis, shortness of breaths, no abdominal pain at this moment, diarrhea, nausea, vomiting, fever, no chills. Patient was admitted for further evaluation and medical management. Past Medical History AFIB, CVA, High Lipids, HTN Past Surgical History , Pacemaker, PTCA Family History Reviewed, noncontributory to the management of this case. Past Social History The patient lives at home, denies smoking, alcohol or illicit drugs abuse. Review of Systems Constitutional: Yes: Weakness; No: Fever, Chills, Sweats, Malaise, Other Eyes: No: Pain, Vision change, Conjunctivae inflammation, Eyelid inflammation, Other, Redness ENT: No: Ear pain, Ear discharge, Nose pain, Nose discharge, Nose congestion, Mouth pain, Mouth swelling, Throat pain, Throat swelling, Other Respiratory: No: Cough, Dry, Shortness of breath, SOB with excertion, Wheezing, Hemoptysis, Pleuritic Pain, Sputum, Wheezing, Other Cardiovascular: No: Chest Pain, Palpitations, Orthopnea, Paroxysmal Noc. Dyspnea, Edema, Lt Headedness, Other Gastrointestinal: Abdominal Pain; No: Nausea, Vomiting, Diarrhea, Constipation, Melena, Hematochezia, Other Genitourinary: No Dysuria, No Frequency, No Incontinence, No Hematuria, No Retention, No Other Musculoskeletal: No: other, neck pain, shoulder pain, arm pain, back pain, hand pain, leg pain, foot pain Skin: No: Rash, Lesions, Jaundice, Bruising, Other Neurological: No: Weakness, Numbness, Incoordination, Change in speech, Confusion, Seizures, Other Allergies: Coded Allergies: NO KNOWN ALLERGIES (Unverified , 03/23/24) Medications Current Medications Medications Dose Ordered Sig/Lakshmi Route Start Time Stop Time Status Last Admin Dose Admin Losartan Potassium 25 mg DAILY PO 04/01/25 10:00 Metoprolol Tartrate 25 mg BID PO 03/31/25 22:00 Clonidine HCl 0.1 mg Q4HP PRN PO 03/31/25 20:30 Pantoprazole Sodium 40 mg DAILY IV 04/01/25 10:00 Sodium Chloride 10 ml Q8HR IV 03/31/25 22:00 Acetaminophen/ Hydrocodone Bitart 1 tab Q4HP PRN PO 03/31/25 20:30 Ondansetron HCl 4 mg Q4HP PRN IV 03/31/25 20:30 Docusate Sodium 100 mg BIDPRN PRN PO 03/31/25 20:30 Acetaminophen 650 mg Q6HP PRN PO 03/31/25 20:30 Rivaroxaban 20 mg QPM PO 04/01/25 18:00 Exam Vital Signs Vital Signs Date Time Temp Pulse Resp B/P (MAP) Pulse Ox O2 Delivery O2 Flow Rate FiO2 03/31/25 22:04 97.6 67 16 145/59 (87) 98 97.6 General Appearance: Alert, Oriented X3, Cooperative, No acute distress HEENT: Atraumatic, PERRLA, EOMI, Mucous membr. moist/pink Respiratory: Normal air movement Cardiovascular: Regular rate, Normal S1, Normal S2, No murmurs Abdominal: Normal bowel sounds, Soft, No hepatospenomegaly, No masses, Other (Reports tenderness) Extremities: No clubbing, No cyanosis, No edema, Normal pulses, No tenderness/ swelling Skin: No rashes, No breakdown, No significant lesion Neuro: Normal speech, Normal tone, Sensation intact, Cranial nerves 3-12 NL, Reflexes 2+, Other (Generalized weakness) Psych/Mental Status: Mental status NL, Mood NL Labs/Xrays Labs Test 03/31/25 18:40 Range/Units White Blood Count 8.2 4.4-10.8 10^3/uL Red Blood Count 4.40 4.0-5.20 10^6/uL Hemoglobin 9.9 L 12.2-16.2 g/dL Hematocrit 30.4 L 36.0-46.0 % Mean Corpuscular Volume 69.2 L 80.0-100.0 fL Mean Corpuscular Hemoglobin 22.5 L 28.0-32.0 pg Mean Corpuscular Hemoglobin Concent 32.5 32.0-36.0 g/dL Red Cell Distribution Width 18.0 H 11.8-14.3 % Platelet Count 329 140-450 10^3/uL Mean Platelet Volume 7.9 6.9-10.8 fL Neutrophils (%) (Auto) 76.5 37.0-80.0 % Lymphocytes (%) (Auto) 12.8 10.0-50.0 % Monocytes (%) (Auto) 8.3 0.0-12.0 % Eosinophils (%) (Auto) 1.9 0.0-7.0 % Basophils (%) (Auto) 0.5 0.0-2.0 % Neutrophils # (Auto) 6.3 1.6-8.6 10 ^3/uL Lymphocytes # (Auto) 1.0 0.4-5.4 10 ^3/uL Monocytes # (Auto) 0.7 0-1.3 10 ^3/uL Eosinophils # (Auto) 0.2 0-0.8 10 ^3/uL Basophils # (Auto) 0 0-0.2 10 ^3/uL Nucleated Red Blood Cells 0.0 % Sodium Level 140 136-145 mmol/L Potassium Level 4.7 3.5-5.1 mmol/L Chloride Level 103 98-107 mmol/L Carbon Dioxide Level 28 20-31 mmol/L Anion Gap 9 5-15 Blood Urea Nitrogen 22 9-23 mg/dL Creatinine 1.31 H 0.550-1.02 mg/dL Glomerular Filtration Rate Calc 41 >90 mL/min BUN/Creatinine Ratio 16.8 10.0-20.0 Serum Glucose 95 74-106 mg/dL Calcium Level 8.8 8.7-10.4 mg/dL Total Bilirubin 0.6 0.2-1.0 mg/dL Aspartate Amino Transferase (AST) 20 13-40 U/L Alanine Aminotransferase (ALT) 14 7-40 U/L Alkaline Phosphatase 116 46-116 U/L Total Protein 7.5 5.7-8.2 g/dL Albumin 4.2 3.2-4.8 g/dL Lipase 51 12-53 U/L PATIENT: CAROL HINKLET: [id number] UNIT: [id number] : 1940 LOC: ER ROOM / BED: / AGE / SEX: 84 / F ADM STATUS: REG ER SERVICE 03 ORDERING PHYSICIAN: NEHEMIAS COFFEY MD PROCEDURE(s): ABPL - CT AB PEL WO CON-NO ORAL OR IV REASON: pain ORDER NUMBER(s): [id number], ACCESSION NUMBER(s): [id number] Exam: CT CT AB PEL WO CON-NO ORAL OR IV History: pain Comparison Study: XY CHEST XRAY 1 VIEW on DOS: 06/25/24, XY CHEST PORTABLE on DOS: 06/19/24, CT HEAD WITHOUT CONTRAST on DOS: 03/23/24 Technique: Multidetector spiral CT of the abdomen was performed from lung bases to pubic symphysis. Imaging was performed without IV contrast. Axial, coronal and sagittal multiplanar reformats were obtained from the axial data set by the technologist. Radiation Dose: 1. Abdomen/Pelvis: CTDIvol 12.23 mGy, DLP 707.71 mGy*cm. Findings: Evaluation of solid organs is limited due to lack of intravenous contrast use. Lung Bases: No acute or significant lung base finding. Normal heart size. No pleural or pericardial effusion. Small pericardial effusion. Liver: The liver is normal in size. No focal lesions. Gallbladder and Biliary Tree: Unremarkable Spleen: Unremarkable Pancreas: The pancreas is grossly normal in appearance. Adrenal Glands: Unremarkable Kidneys: Left kidney is severely atrophic. Bladder: Grossly unremarkable for degree of distention. Bowel: The stomach is grossly normal in appearance. Small bowel and colon are normal in caliber and distribution. The appendix is not visualized; however, no secondary findings of acute appendicitis identified. Ascites: Small volume ascites. Lymphadenopathy: No mesenteric, retroperitoneal or periportal lymphadenopathy. Abdominal Wall and Mesentery: Unremarkable. Vasculature: The visualized abdominal aorta is normal in size and caliber. Evaluation of abdominal and pelvic vessels is limited due to lack of intravenous contrast. Pelvic Organs: Unremarkable Musculoskeletal: No aggressive focal bony lesions, acute fractures or dislocation. Right breast implant. IMPRESSION: No acute abdominal or pelvic findings. ORDERING PHYSICIAN: NEHEMIAS COFFEY MD PROCEDURE(s): GBUS - GALLBLADDER REASON: pain ORDER NUMBER(s): [id number], ACCESSION NUMBER(s): [id number] EXAM: US GALLBLADDER HISTORY: pain COMPARISON: XY CHEST XRAY 1 VIEW on DOS: 06/25/24 TECHNIQUE: Multiple longitudinal and transverse sonographic images of the abdomen were obtained. Doppler was applied as indicated. FINDINGS: [PANCREAS]: The visualized portions of the pancreas are unremarkable. [AORTA]: Normal [LIVER]: 12.8 cm. normal echogenicity and echotexture. There is no focal hepatic mass lesion detected. [GALLBLADDER]: Gallbladder wall measures 0.2 cm. There is no gallbladder sludge or shadowing gallstone. There is no sonographic Hemphill sign. [BILIARY TREE]: Not well-visualized [ASCITES]: No free fluid is demonstrated. [VESSELS]: The main portal vein is patent on color Doppler evaluation. The inferior vena cava is patent on color Doppler evaluation. [RIGHT KIDNEY]: 9 cm. normal cortical echogenicity and normal contour. No hydronephrosis. IMPRESSION: 1. No acute sonographic abnormality of the abdomen allowing for limitation from overlying bowel gas and patient positioning. SEPSIS Sepsis Screen Date sepsis recognized/suspect: Mar 31, 2025 Time Sepsis recognized/suspect: 1718 Recent Procedure: No Respiratory Rate >20: No Heart Rate >90: No Temp<36 C (96.8 F) or >38.3 C: No SBP <90 or MAP <65 mmHG: No New Acute Mental Status Change: No Is the patient on CPAP, BIPAP,: No Physician Orders Urinalysis (03/31/25 18:14) Heplock Iv (03/31/25 18:14) Health Care Analyst (03/31/25 18:14) Blood Pressure (03/31/25 18:14) Pulse Oximetry (03/31/25 18:14) Gallbladder (03/31/25 18:14) Electrocardigram (03/31/25 18:47) Ct Ab Pel Wo Con-No Oral Or Iv (03/31/25 20:04) Losartan Tablet (Cozaar Tablet) (04/01/25 10:00) Metoprolol Tartrate Tablet (Lopressor Ta (03/31/25 22:00) Clonidine Hcl Tablet (Catapres Tablet) (03/31/25 20:30) Pantoprazole (Protonix) (04/01/25 10:00) Allergies (03/31/25 20:28) Code Status (03/31/25 20:28) Sodium Chloride Lock (Saline Lock Ns) (03/31/25 22:00) Oxygen Per Hour (03/31/25 20:28) Hydrocodone-Acet 5/325mg Tab ([place] 532 (03/31/25 20:30) Ondansetron Hcl (Zofran) (03/31/25 20:30) Docusate Sodium Capsule (Colace Capsule) (03/31/25 20:30) Fall Risk Precautions In Place QSHIFT (03/31/25 20:) Complete Blood Count (04/01/25 04:00) Comprehensive Metabolic Panel (04/01/25 04:00) Condition: Serious (03/31/25 20:28) Acetaminophen Tablet (Tylenol Tablet) (03/31/25 20:30) Clear Liq Diet (04/01/25 Breakfast) Maintain Bed Rest (03/31/25 20:28) Sequential Compression Device (03/31/25 ) Rivaroxaban Tablet (Xarelto Tablet) (04/01/25 18:00) Vital Signs Date Time Temp Pulse Resp B/P (MAP) Pulse Ox O2 Delivery O2 Flow Rate FiO2 03/31/25 22:04 97.6 67 16 145/59 (87) 98 97.6 03/31/25 18:20 71 03/31/25 17:33 71 03/31/25 17:19 98.4 74 16 156/72 98 98.4 Laboratory Tests Test 03/31/25 18:40 White Blood Count 8.2 10^3/uL (4.4-10.8) Assessment/Plan Assessment/Plan Intractable abdominal pain Anemia, unspecified Acute renal injury Generalized weakness Plan 1. Admit to med surge unit 2. Breathing treatment 3. Pain control management 4. Management of fluids and electrolytes 5. Consultation for hospitalist 6. Diagnostic tests abdomen/pelvis CT 7. DVT prophylaxis-on SCDs 8. Repeat labs CBC, CMP in a.m. 9. Continue with current medical management 10. Treatment plan discussed with patient and RN. Patient verbalized understanding. Plan discussed with: Patient, Other (RN) My Orders Orders - BOBO ANTHONY DNP Procedure Category Date Status Time Losartan Tablet PHA 04/01/25 In Process (Cozaar Tablet) 10:00 Metoprolol Tartrate PHA 03/31/25 In Process Tablet (Lopressor Ta 22:00 Clonidine Hcl Tablet PHA 03/31/25 In Process (Catapres Tablet) 20:30 Pantoprazole PHA 04/01/25 In Process (Protonix) 10:00 Allergies EDWIN 03/31/25 In Process 20:28 Code Status CODE 03/31/25 Transmitted 20:28 Sodium Chloride Lock PHA 03/31/25 In Process (Saline Lock Ns) 22:00 Oxygen Per Hour RT 03/31/25 Transmitted 20:28 Hydrocodone-Acet PHA 03/31/25 In Process 5/325mg Tab ([place] 20:30 Ondansetron Hcl PHA 03/31/25 In Process (Zofran) 20:30 Docusate Sodium PHA 03/31/25 In Process Capsule (Colace 20:30 Fall Risk Precautions EDWIN 03/31/[address] 20:28 Complete Blood Count LAB 04/01/25 Verified 04:00 Comprehensive LAB 04/01/25 Verified Metabolic Panel 04:00 Condition: Serious EDWIN 03/31/25 In Process 20:28 Acetaminophen Tablet PHA 03/31/25 In Process (Tylenol Tablet) 20:30 Clear Liq Diet DIET 04/01/25 Transmitted Breakfast Maintain Bed Rest EDWIN 03/31/25 In Process 20:28 Sequential EDWIN 03/31/25 In Process Compression Device Rivaroxaban Tablet PHA 04/01/25 In Process (Xarelto Tablet) 18:00 Problem List: (1) Intractable abdominal pain (2) Anemia, unspecified (3) Acute renal injury (4) Generalized weakness Date of Service: Mar 31, 2025 Billing Provider: BOBO ANTHONY DNP Common Visit Codes: 77536-[id number] INP/OBS CARE (HIGH) BOBO ANTHONY DNP Mar 31, 2025 22:29
[2025-03-31] MEDS ORDERED: MORPHINE SULFATE INJ 2 MG/ml SYRG IV PRN (22:30)
[2025-03-31] MEDS ORDERED: NITROGLYCERIN 0.4 MG SL TAB SL PRN (22:30)
[2025-03-31 23:05] VITALS: PULSE 67; RESP 16; O2SAT 98
[2025-03-31 23:20] VITALS: BP 154/73; PULSE 73; RESP 17; TEMP 97.9; O2SAT 99
[2025-03-31 23:35] VITALS: BP_SYST 122; BP_SYST 154; BP_DIAS 73; BP_DIAS 75; PULSE 73; PULSE 82; RESP 16; RESP 17; TEMP 97.8; TEMP 97.9; O2SAT 98; O2SAT 99
[2025-03-31] MEDS: METOPROLOL TARTRATE 25 MG TAB PO SCH (23:36)
[2025-03-31] MEDS: SODIUM CHLOR 0.9% PF (SALINE LOCK) 10ML VIAL/SYR IV SCH (23:37)
[2025-04-01] VITALS (7 sets, daily range): BP systolic 125–155; BP diastolic 54–77; PULSE 60–72; RESP 17–20; TEMP 97.6–98; O2SAT 94–99
[2025-04-01] MEDS: PANTOPRAZOLE 40 MG/10 ML VIAL INJ IV ONE (00:14)
[2025-04-01 06:41] LABS: Hematocrit 29.2 % (36.0-46.0); Hemoglobin 9.4 g/dL (12.2-16.2); Mean Corpuscular Hemoglobin 22.5 pg (28.0-32.0); Mean Corpuscular Volume 70.0 fL (80.0-100.0); Nucleated Red Blood Cells % 0.0 %
[2025-04-01 06:58] LABS: Alanine Aminotransferase 13 U/L (7-40); Albumin 3.8 g/dL (3.2-4.8); Alkaline Phosphatase 107 U/L (46-116); Anion Gap 10 (5-15); BUN/Creatinine Ratio 15.8 (10.0-20.0); Bilirubin, Total 0.5 mg/dL (0.2-1.0); Blood Urea Nitrogen 21 mg/dL (9-23); Carbon Dioxide 27 mmol/L (20-31); Chloride 105 mmol/L (98-107); Glucose 90 mg/dL (74-106); Potassium 4.2 mmol/L (3.5-5.1); Sodium 142 mmol/L (136-145); Total Protein 6.7 g/dL (5.7-8.2)
[2025-04-01 07:01] LABS: Calcium 8.3 mg/dL (8.7-10.4)
[2025-04-01 07:15] LABS: Hepatitis B Surface Antigen Negative (Negative)
[2025-04-01 07:34] LABS: Hepatitis C Antibody Negative (Negative)
[2025-04-01] MEDS: HYDROcodone-ACET 5/325MG TAB PO PRN (08:02)
[2025-04-01] MEDS: LOSARTAN POTASSIUM 25 MG TAB PO SCH (09:30)
[2025-04-01] MEDS: PANTOPRAZOLE 40 MG/10 ML VIAL INJ IV SCH (09:31)
[2025-04-01] MEDS ORDERED: PANTOPRAZOLE 40 MG/10 ML VIAL INJ IV SCH (10:00)
[2025-04-01] MEDS: RIVAROXABAN 20 MG TAB PO SCH (17:48)
[2025-04-02 01:00] VITALS: BP 128/53; PULSE 61; RESP 18; TEMP 98; O2SAT 96
[2025-04-02 05:00] VITALS: BP 130/41; PULSE 62; RESP 18; TEMP 98.2; O2SAT 95
--- NOTE | 2025-04-02 07:01 | ECG ---
[facility] Test Date: 2025-03-31 Test Time: 17:33:07 Pat Name: CAROL HINKLE Department: Room: 0292 A Gender: F Geographic Analyst: GARY : 1940 Requested By: NEHEMIAS COFFEY Order Number: [id number] Reading MD: Klevin Simpson Measurements Intervals [place] Rate: 71 P: 251 TN: 286 QRS: -78 QRSD: 152 T: 108 QT: 435 QTc: 473 Interpretive Statements Atrial-sensed ventricular-paced rhythm No further analysis attempted due to paced rhythm Electronically Signed On 04-04-2025 10:54:46 PST by Kelvin Simpson Please click the below link to view image of tracing.
[2025-04-02 08:38] VITALS: BP 138/62; PULSE 60; RESP 16; TEMP 97.8; O2SAT 96
[2025-04-02] MEDS: PANTOPRAZOLE 40 MG/10 ML VIAL INJ IV SCH (09:16)
[2025-04-02] MEDS ORDERED: FAMO20TA10 PO (12:16)
--- NOTE | 2025-04-02 12:18 | DVHDS2 ---
Discharge Summary Date of Admission Mar 31, 2025 at 22:27 Date of Discharge: Apr 02, 2025 Admitting Diagnosis Abdominal Pain due to Gastritis Labs/Diagnostic Data: Laboratory Results Test 04/01/25 05:50 03/31/25 18:40 White Blood Count 6.7 10^3/uL (4.4-10.8) Red Blood Count 4.17 10^6/uL (4.0-5.20) Hemoglobin 9.4 g/dL (12.2-16.2) Hematocrit 29.2 % (36.0-46.0) Mean Corpuscular Volume 70.0 fL (80.0-100.0) Mean Corpuscular Hemoglobin 22.5 pg (28.0-32.0) Mean Corpuscular Hemoglobin Concent 32.1 g/dL (32.0-36.0) Red Cell Distribution Width 17.9 % (11.8-14.3) Platelet Count 270 10^3/uL (140-450) Mean Platelet Volume 8.0 fL (6.9-10.8) Neutrophils (%) (Auto) 70.3 % (37.0-80.0) Lymphocytes (%) (Auto) 15.9 % (10.0-50.0) Monocytes (%) (Auto) 10.7 % (0.0-12.0) Eosinophils (%) (Auto) 2.6 % (0.0-7.0) Basophils (%) (Auto) 0.5 % (0.0-2.0) Neutrophils # (Auto) 4.7 10 ^3/uL (1.6-8.6) Lymphocytes # (Auto) 1.1 10 ^3/uL (0.4-5.4) Monocytes # (Auto) 0.7 10 ^3/uL (0-1.3) Eosinophils # (Auto) 0.2 10 ^3/uL (0-0.8) Basophils # (Auto) 0 10 ^3/uL (0-0.2) Nucleated Red Blood Cells 0.0 % Sodium Level 142 mmol/L (136-145) Potassium Level 4.2 mmol/L (3.5-5.1) Chloride Level 105 mmol/L (98-107) Carbon Dioxide Level 27 mmol/L (20-31) Anion Gap 10 (5-15) Blood Urea Nitrogen 21 mg/dL (9-23) Creatinine 1.33 mg/dL (0.550-1.02) Glomerular Filtration Rate Calc 40 mL/min (>90) BUN/Creatinine Ratio 15.8 (10.0-20.0) Serum Glucose 90 mg/dL (74-106) Calcium Level 8.3 mg/dL (8.7-10.4) Total Bilirubin 0.5 mg/dL (0.2-1.0) Aspartate Amino Transferase (AST) 18 U/L (13-40) Alanine Aminotransferase (ALT) 13 U/L (7-40) Alkaline Phosphatase 107 U/L (46-116) Total Protein 6.7 g/dL (5.7-8.2) Albumin 3.8 g/dL (3.2-4.8) Hepatitis B Surface Antigen Negative (Negative) Hepatitis C Antibody Negative (Negative) Lipase 51 U/L (12-53) Other Laboratory Tests 04/01/25 05:50 Brief Hx & Hospital Course: Patient was admitted for abdominal pain, CT Abd/Pelvis was done, see report below. Pain has been resolved. Likely due to Gastritis, will go home on a full liquid diet and advance as tolerated. DC with Min. Spoke with patient and daughter in detail. Followup with Dr. Christy next week. Operations or Procedures Exam: CT CT AB PEL WO CON-NO ORAL OR IV History: pain Comparison Study: XY CHEST XRAY 1 VIEW on DOS: 06/25/24, XY CHEST PORTABLE on DOS: 06/19/24, CT HEAD WITHOUT CONTRAST on DOS: 03/23/24 Technique: Multidetector spiral CT of the abdomen was performed from lung bases to pubic symphysis. Imaging was performed without IV contrast. Axial, coronal and sagittal multiplanar reformats were obtained from the axial data set by the technologist. Radiation Dose : 1. Abdomen/Pelvis: CTDIvol 12.23 mGy, DLP 707.71 mGy*cm. Findings: Evaluation of solid organs is limited due to lack of intravenous contrast use. Lung Bases: No acute or significant lung base finding. Normal heart size. No pleural or pericardial effusion. Small pericardial effusion. Liver: The liver is normal in size. No focal lesions. Gallbladder and Biliary Tree: Unremarkable Spleen: Unremarkable Pancreas: The pancreas is grossly normal in appearance. Adrenal Glands: Unremarkable Kidneys: Left kidney is severely atrophic. Bladder: Grossly unremarkable for degree of distention. Bowel: The stomach is grossly normal in appearance. Small bowel and colon are normal in caliber and distribution. The appendix is not visualized; however, no secondary findings of acute appendicitis identified. Ascites: Small volume ascites. Lymphadenopathy: No mesenteric, retroperitoneal or periportal lymphadenopathy. Abdominal Wall and Mesentery: Unremarkable. Vasculature: The visualized abdominal aorta is normal in size and caliber. Evaluation of abdominal and pelvic vessels is limited due to lack of intravenous contrast. Pelvic Organs: Unremarkable Musculoskeletal: No aggressive focal bony lesions, acute fractures or dislocation. Right breast implant. IMPRESSION: No acute abdominal or pelvic findings. Radiation optimization: All CT scans at this facility use at least one of these dose optimization techniques: automated exposure control mA and/or kV adjustment per patient size (includes targeted exams where dose is matched to clinical indication) or iterative reconstruction. Condition at Discharge: Stable Final Diagnosis/Problems List Abdominal Pain due to Gastritis Discharge Disposition: Home Discharge Instruct/Medications Diet: See Comment Diet comment: Full liquid Activity: Light activity Follow Up/Referral: Dr. Christy Medications: Pepcid Scheduled Famotidine (Pepcid Tablet), 1 TAB PO BID Discharge Statement: "Patient was advised to return to the ER or call 911 if any headaches, dizziness, shortness of breath, chest pain, abdominal pain, bleeding, fevers, or worsening of medical condition. Patient was counseled about treatment plan, medications, possible side effects, patientverbalized understanding. All questions were answered to the best of my ability. This discharge took greater then 30 minutes in planning, reviewing documentation, counseling the patient, and discussing with other team members." ASSESSMENT ASSESSMENT Assessment Date of Service: Apr 02, 2025 Billing Provider: ALVARO PUENTE MD Common Visit Codes: 16835-UZZ/OBS DISCH DAY >30min ALVARO PUENTE MD Apr 02, 2025 12:18
[2025-04-02 13:00] VITALS: BP 136/69; PULSE 59; RESP 16; TEMP 98.1; O2SAT 99
[2025-04-02 13:58] VITALS: BP 138/62; PULSE 60; TEMP 36.7
== END 2025-04-02 14:45 | disposition home or self-care (01) | DRG 392 ==
LOC: ER 17:17 → OVERFLOW 22:27 → WEST WING 23:08
PROVIDERS: ADMIT Internal Medicine; ATTEND Internal Medicine
DX: K29.70 Gastritis, unspecified, without bleeding (principal); N17.9 Acute kidney failure, unspecified; I10 Essential (primary) hypertension; D64.9 Anemia, unspecified; E78.5 Hyperlipidemia, unspecified; I48.91 Unspecified atrial fibrillation; Z86.73 Personal history of transient ischemic attack (TIA), and cerebral infarction without residual deficits; Z95.5 Presence of coronary angioplasty implant and graft; Z95.0 Presence of cardiac pacemaker
CPT/HCPCS: 36415; 74176; 76705; 80053; 83690; 85025; 86803; 87081; 87340; 93005; G0378; J2470